=== PATIENT | female | born 1965 ===

== ENCOUNTER 2017-06-15 17:10 | Emergency (ER) | payer OTHER ==
[2017-06-15 17:18] VITALS: RESP 16; O2SAT 97
--- NOTE | 2017-06-15 18:04 | C.PDOC ---
History Of Present Illness Patient is a 52 y/o female that presents to the ED for evaluation of pain on urination, urinary frequency associated with suprapubic discomfort, and mild lower back pain for the last 4 days. Otherwise, patient denies hematuria, abdominal pain, nausea, vomiting, fever, chills, or any other associated symptoms at this time. Pt sts, takes Pyridium OTC without improvement. Ambulate to Ed for evaluation, not in any apparent distress. Time Seen by Provider: 06/15/17 17:34 Chief Complaint (Nursing): Female Genitourinary History Per: Patient History/Exam Limitations: no limitations Onset/Duration Of Symptoms: Days (4) Current Symptoms Are (Timing): Still Present Quality Of Discomfort: "Pain" Associated Symptoms: Back Pain (mild lower back), Urinary Symptoms (dysuria, urinary frequency). denies: Fever, Chills, Nausea, Vomiting, Diarrhea, Loss Of Appetite, Chest Pain, Constipation Alleviating Factors: None Recent travel outside of the [place]: No Additional History Per: Patient Abnormal Vaginal Bleeding: No Past Medical History Reviewed: Historical Data, Nursing Documentation, Vital Signs Vital Signs: Last Vital Signs Temp 98.2 F 06/15/17 17:15 Pulse 95 H 06/15/17 17:15 Resp 16 06/15/17 17:15 BP 128/82 06/15/17 17:15 Pulse Ox 97 06/15/17 18:19 Family History: States: Unknown Family Hx - Social History Hx Alcohol Use: No Hx Substance Use: No Review Of Systems Except As Marked, All Systems Reviewed And Found Negative. Constitutional: Negative for: Fever, Chills Gastrointestinal: Positive for: Abdominal Pain (suprapubic). Negative for: Nausea, Vomiting, Diarrhea Genitourinary: Positive for: Dysuria, Frequency. Negative for: Incontinence, Hematuria, Vaginal Discharge, Vaginal Bleeding Musculoskeletal: Positive for: Back Pain (mild lower) Neurological: Negative for: Weakness, Numbness Physical Exam - Physical Exam Appears: Non-toxic, No Acute Distress Skin: Normal Color, Warm, Dry Throat: No Erythema Neck: Supple Cardiovascular: Rhythm Regular, No Murmur Respiratory: No Decreased Breath Sounds, No Accessory Muscle Use, No Rales, No Rhonchi, No Wheezing Gastrointestinal/Abdominal: Soft, Tenderness (mild suprapubic), No Distention, No Guarding, No Rebound Back: Normal Inspection, No CVA Tenderness, No Vertebral Tenderness, No Paraspinal Tenderness Extremity: No Pedal Edema Extremity: Bilateral: Atraumatic Neurological/Psych: Oriented x3, Normal Speech, Normal Cognition ED Course And Treatment O2 Sat by Pulse Oximetry: 97 (RA) Pulse Ox Interpretation: Normal Progress Note: Urinalysis reviewed and appears without acute abnoramlities. On re-eval, pt don febrile, hemodynamicalys table. Non-toxic. Tolerate Po well in ED. ENT: no acute findings. neck: Supple. Abd: benign, (-) guarding, (-) rebound, (-) localized tenderness. back: (-) CVA tenderness. Pt ahs clinical findings c/w dysuria. Pt advised and ref. to f/u with PMD and [facility] in2 -3 days for re-eavl. return to Ed if any worsening or new changes. Disposition Counseled Patient/Family Regarding: Studies Performed, Diagnosis, Need For Followup, Rx Given - Disposition Referrals: Waylon Paige Jr., MD [Medical Doctor] - [facility] [Outside] Disposition: HOME/ ROUTINE Disposition Time: 18:18 Condition: STABLE Additional Instructions: Take medication as prescribed Follow up with PMD, [facility] in 2-3 days for re-evaluation. Return to ED if any worsening or new changes. Prescriptions: Nitrofurantoin Macrocrystals [Macrobid] 1 cap PO BID #14 cap traMADol [Ultram] 50 mg PO TID #7 tab Instructions: Dysuria (ED) Print Language: GEORGIAN - Clinical Impression Clinical Impression: Dysuria - PA / CHECKING CLERK / Resident Statement MD/ has reviewed & agrees with the documentation as recorded. - Scribe Statement The provider has reviewed the documentation as recorded by the Myrandaibe Julia Ohara All medical record entries made by the Griffin were at my direction and personally dictated by me. I have reviewed the chart and agree that the record accurately reflects my personal performance of the history, physical exam, medical decision making, and the department course for this patient. I have also personally directed, reviewed, and agree with the discharge instructions and disposition.
[2017-06-15 18:09] LABS: SQUAMOUS EPITHIAL 3 /hpf (0-5); URINE BACTERIA RARE (<OCC); URINE BILIRUBIN NEGATIVE (NEGATIVE); URINE BLOOD NEGATIVE (NEGATIVE); URINE CLARITY Hazy (Clear); URINE COLOR Amber (YELLOW); URINE GLUCOSE (UA) NORMAL (Normal); URINE LEUKOCYTE ESTERASE NEG Leu/uL (Negative); URINE NITRATE NEGATIVE (NEGATIVE); URINE PROTEIN NEGATIVE (NEGATIVE); URINE UROBILINOGEN NORMAL mg/dL (0.2-1.0)
[2017-06-15 19:24] VITALS: BP 122/87; PULSE 89; TEMP 98
== END 2017-06-15 18:40 | disposition home or self-care (01) ==
LOC: C.ER 17:10
DX: R30.0 Dysuria (principal)